=== PATIENT | female | born 1975 | race Caucasian/White ===

== ENCOUNTER 2018-01-03 21:40 | Inpatient (IN) ==
[2018-01-03] MEDS ORDERED: Naloxone 0.4 MG/ML INJ IVP PRN (23:46)
[2018-01-04] MEDS ORDERED: Albuterol 2.5 MG/3 ML NEBULIZER IH PRN (00:27)
[2018-01-04] MEDS ORDERED: hydrOXYzine pamoate 25 MG CAPSULE PO PRN ×2 (00:29→10:30)
[2018-01-04] MEDS ORDERED: Acetaminophen 325 MG TABLET PO PRN (00:29)
--- NOTE | 2018-01-04 00:49 | Internal Med History&Physical ---
<Ava Gomez - Last Filed: 01/04/18 03:10> Date of Encounter: 01/04/18 Time of Encounter: 00:34 Internal Medicine - H&P: HPI Chief complaint: shortness of breath Admitted From: Hospital to Hospital Transfer Plans for Post Hospital Care: Home History of present illness: Ms. Larios is a 42 year old female hx of anxiety and depression presented to [facility] with shortness of breath. Onset 4 days ago with productive cough, malaise, chills & feverish feeling, diaphoresis, and wheeze. She has sternal chest pain tender to touch worse with cough and without radiation. In ED, she was hypoxic 89% on RA and started on oxygen - improved to 95% on 2 l. She was given three albuterol treatments and solumedral - until she became anxious and tachypenic requiring hydroxyzine then Ativan 1 mg then 2mg IV. Received 1 L NS IVF. WBC at 13.4 - normal lactic acid, CRP, LDH and UA. Normal EKG. CMP with anion gap of 7. CT chest showed bilateral ground glass opacities and mild medianstinal adenopathy - radiologist read as suspicous for sarciodosis One month ago she was treated for PNA with Levaquin, steroids and albuterol inhaler - and recovered. She has never been diagnosed with lung disease or had PFTs but she gets recurrent PNA once a year for that past 7 years. She has chronic joint pain in hands bilateral, stiffness worse in morning and occasional numbness- she was seeing a doctor in [place] for this but doesn't know what she was diagnosed with. She has chronic constipation, dry mouth, and decrease in visual acuity in last 6 months. She has fibromalagia worse in her hips for which she was taking gabapentin but stopped few months ago. Has multiple environmental and food allergies. She sees psychiatry for her anxiety and depression and takes Prozac, Wellbutin, Buspar, Trazodone, and Visterial. Family history of grandfather with COPD, and three grandparents with MIs all over age of 50. Surgical history include 3 laproscopic endometriosis lysis and hysterectomy. She quit smoking last week but has 50 pk yr. EtOH 3-4x drinks once every two weeks. He has history of abusing clonidine - quit 6 years ago - denies illicit substance. Past Med Surg Social Fam HX - Past Medical History Medical history: non-contributory Additional medical history: insomnia Psychiatric history: anxiety, depression, other - Past Surgical History Additional surgical history: x-lap - Social History Smoking Status: Current every day smoker Smokeless Tobacco Status: No Alcohol use: none Drug use: none - Family History Mother Living Status: Still Living Hx Family Endocrine Disorder: Yes (dm, thyroid) Father Living Status: Still Living Hx Family Cancer: Yes (melanoma, mouth cancer) Hx Family Endocrine Disorder: Yes (thyroid) Internal Medicine - H&P: Meds Acetaminophen [Tylenol] 325 mg PO Q4-6H PRN 01/04/18 [History] Albuterol Neb [AccuNeb] 0.63 mg IH Q6H PRN 01/04/18 [History] Albuterol Sulfate [Proair Hfa] 1 puff IH Q4-6H PRN 01/04/18 [History] BuPROPion [Wellbutrin] 50 mg PO TID 01/04/18 [History] Buspirone HCl [Buspar] 15 mg PO TID 01/04/18 [History] FLUoxetine HCl [PROzac] 30 mg PO HS 01/04/18 [History] Naproxen Sodium [Aleve] 220 mg PO Q12HR PRN 01/04/18 [History] traZODone [TraZODone] 150 mg PO HS 01/04/18 [History] 3 Allergy/AdvReac Type Severity Reaction Status Date / Time Penicillins Allergy Hives Verified 09/13/16 13:06 metronidazole [From Flagyl] AdvReac Hallucinati Verified 01/04/18 01:45 ng prednisone AdvReac Hallucinati Verified 09/13/16 13:06 ng All Systems PM: A 10-system review of systems was performed and is negative for pertinent findings except as documented above in the HPI. - Constitutional Constitutional: chills, fatigue, malaise, night sweats, no fever(s) - EENT Eyes: blurry vision, change in vision, no loss of vision - Cardiovascular Cardiovascular ROS IM: chest pain, dyspnea, lightheadedness, no edema, no palpitations - Respiratory Respiratory: cough, wheezing, pain on inspiration - Gastrointestinal Gastrointestinal: constipation, nausea, no diarrhea, no vomiting - Genitourinary Genitourinary: no dysuria, no urinary frequency, no urinary incontinence - Musculoskeletal Musculoskeletal ROS IM: arthralgias, back pain, joint swelling, muscle cramps, myalgias, numbness, stiffness, tingling - Integumentary Integumentary IM: no erythema - Psychiatric Psychiatric: anxiety, depression - Endocrine Endocrine IM: no polydipsia, no polyphagia, no polyuria - Allergic/Immunologic Allergic/Immunologic: as per HPI, seasonal rhinorrhea - Constitutional Vitals: Temp Pulse Resp BP Pulse Ox 98.8 F 83 18 102/63 97 01/03/18 23:59 01/03/18 23:59 01/03/18 23:59 01/03/18 23:59 01/03/18 23:59 General appearance: Present: mild distress, A&O X 3, pleasant, answers questions appropriately Exam: conversational dyspena on 3 L NC - Head Head exam: Present: atraumatic, normocephalic - ENT ENT exam: Present: mucous membranes moist, normal oropharynx - Respiratory Respiratory exam: Present: chest wall tenderness, respiratory distress. Absent : wheezes - Cardiovascular Cardiovascular exam: Present: +S1, +S2, tachycardia. Absent: gallop - GI/Abdominal GI/Abdominal exam: Present: normal bowel sounds, soft. Absent: mass, rebound, tenderness - Extremities Exam Extremities exam: Present: full ROM, normal capillary refill, tenderness, radial pulses palpable and symmetrical. Absent: joint swelling, pedal edema Additional comments: tender left hand 1st metacarpal but no joint swelling or erythema, negative phalen test - Back Exam Back exam: Present: full ROM, tenderness. Absent: rash noted - Psychiatric Psychiatric exam: Present: anxious, normal affect. Absent: manic Internal Med - H&P Results - Labs CBC & Chem 7: 01/04/18 00:35 01/04/18 00:35 - Assessment and plan (1) Acute respiratory failure with hypoxia Current Visit: Yes Status: Acute Assessment and plan: suspect sacoidosis based on radiographs, but history also supports undiagnosed COPD -order Ca and Vit D levels - consult pulmonology - continue DueNeb q 4hr scheduled - methylprednisolone 40 mg q 6hr - consider PTs as out patient (2) Anxiety and depression Current Visit: Yes Status: Acute Assessment and plan: - continue home medication - hydroxyzine tid - hesitate to give ativan for anxiety again unless she becomes hypoxic - Time Spent With Patient Total time spent is greater than 50% in coordination of care (as documented) at patient's floor/unit and/or counseling patient: Greater than 35 minutes <Alexandrea Kilpatrick - Last Filed: 01/04/18 07:51> Date of Encounter: 01/04/18 Internal Medicine - H&P: HPI History of present illness: Ms. Larios is a 42 year old female All Systems PM: A 10-system review of systems was performed and is negative for pertinent findings except as documented above in the HPI. - Constitutional Vitals: Temp Pulse Resp BP Pulse Ox 98.3 F 76 16 101/65 98 01/04/18 07:26 01/04/18 07:26 01/04/18 07:26 01/04/18 07:26 01/04/18 07:26 Internal Med - H&P Results - Labs CBC & Chem 7: 01/04/18 00:35 01/04/18 00:35 Labs: Short CBC 01/04/18 Range/Units 00:35 WBC 8.8 (4.3-11.1) K/mcL Hgb 12.6 (11.5-15.4) g/dL Hct 38.9 (35.3-44.9) % Plt Count 381 (140-400) K/mcL BMP 01/04/18 01/04/18 00:35 05:32 Sodium 140 Potassium 4.1 Chloride 106 Carbon Dioxide 27 BUN 8 Creatinine 0.79 Glucose 120 H Calcium 9.0 8.7 Cardiac Enzymes 01/04/18 Range/Units 00:35 Troponin I < 0.03 (< 0.04) ng/mL Liver Function 01/04/18 Range/Units 00:35 Total Bilirubin 0.5 (0.3-1.0) mg/dL AST 14 (13-39) Units/L ALT 13 (7-52) Units/L Alkaline Phosphatase 73 (34-104) Units/L Albumin 3.8 (3.5-5.7) g/dL - Time Spent With Patient Total time spent is greater than 50% in coordination of care (as documented) at patient's floor/unit and/or counseling patient: - Attending Attestation Patient seen and examined. Chart reviewed case discussed with resident. Agree with assessment and plan. Dyspnea possibly secondary to sarcoidosis vs other as of yet undiagnosed rheumatologic disorder. Continue duo nebs, steroids. Pulmonary consult in the morning.
[2018-01-04 01:00] LABS: Hematocrit 38.9 % (35.3-44.9); Hemoglobin 12.6 g/dL (11.5-15.4); Mean Corpuscular HGB Conc 32.4 g/dL (31.6-35.5); Mean Corpuscular Hemoglobin 30.2 pg (28.0-33.3); Mean Corpuscular Volume 93.3 fL (83.0-100.0); Mean Platelet Volume 8.8 fL (9.4-12.4); Platelet Count 381 K/mcL (140-400); Red Blood Count 4.17 M/mcL (3.82-4.97); Red Cell Distribution Width 14.7 % (11.5-14.5)
[2018-01-04] MEDS: 0.9 % Sodium Chloride 1,000 ML IVC SCH ×2 (01:07→10:51)
[2018-01-04] MEDS: *HR* Heparin 5,000 UNIT/ML VIAL SQ SCH ×4 (01:07→23:00)
[2018-01-04 01:11] LABS: INR 1.1; Prothrombin Time 11.9 Seconds (9.4-12.1)
[2018-01-04] MEDS: MethylPREDNISolone 40 MG/ML VIAL IVP SCH ×5 (01:18→23:00)
[2018-01-04 01:21] LABS: Alanine Aminotransferase 13 Units/L (7-52); Albumin 3.8 g/dL (3.5-5.7); Albumin/Globulin Ratio 1.3 (1.1-2.2); Alkaline Phosphatase 73 Units/L (34-104); Aspartate Amino Transferase 14 Units/L (13-39); BUN/Creatinine Ratio 10 (6-26); Bilirubin,Total 0.5 mg/dL (0.3-1.0); Blood Urea Nitrogen 8 mg/dL (6-20); Carbon Dioxide 27 mEq/L (23-29); Chloride 106 mEq/L (98-107); Globulin 2.9 g/dL (2.4-3.5); Glucose 120 mg/dL (70-105); Osmolality,Calculated 290 (280-300); Potassium 4.1 mEq/L (3.5-5.1); Sodium 140 mEq/L (136-145); Total Protein 6.7 g/dL (6.4-8.9); Troponin I < 0.03 ng/mL (< 0.04); eGFR For Non-African Americans > 60 (> 60)
[2018-01-04] MEDS: FLUoxetine HCl 10 MG CAPSULE PO SCH ×2 (02:31→21:51)
[2018-01-04] MEDS: traZODone 50 MG TABLET PO SCH ×2 (02:31→21:51)
[2018-01-04] MEDS: Ipratropium/Albuterol Neb 3 ML IH SCH ×6 (03:38→23:16)
--- NOTE | 2018-01-04 10:04 | Internal Med Progress Note ---
<Sammy Gasca S - Last Filed: 01/04/18 09:59> Hospitalist Progress Note - Encounter Date of Encounter: 01/04/18 Time of Encounter: 10:00 - Subjective Interval History: Pt is seen at the bedside. She has a PMH of hx of anxiety and depression presented to [facility] with shortness of breath. States that she has been having SOB with assoc cough for 4 cintron. Coughing up white sputum and feels feverish subjectively. She denies chest pain, although resident overnight reports that she had chest pain that was tender to the touch and worse with cough. Has a hx of pneumonia tx with levofloacin. She denies COPD /asthma. Reports smoking for the last 26yrs. She has chronic pain diffusely and is seeing a doctor in [place] for this. Pt reports constipation. She has a hx of anxiety/depression, seen by [facility]. Has hx of drug abuse of Klonopin. In the ER, she was 89% O2 and started on O2, improved to 95% on 2L. She was given albuterol tx x3 and then became "very anxious" and required hydroxyzine and ativan. WBC 8.8. Normal lactic acid, CRP, LDH and UA. CT chest showed bilateral ground glass opacities and mild medianstinal adenopathy - radiologist read as suspicous for sarciodosis - Exam Vitals: Temp Pulse Resp BP Pulse Ox 98.3 F 76 16 101/65 97 01/04/18 07:26 01/04/18 07:26 01/04/18 07:33 01/04/18 07:26 01/04/18 07:33 Exam: general - nad, aox3 cardio - rrr, s1s2 cta lungs - diffuse rhonchi abd - NTND, no rebound or guading skin - intact no rash extremities - no edema - Assessment and Plan (1) Acute respiratory failure with hypoxia Current Visit: Yes Status: Acute Assessment and Plan: Pt presented with acute respiratory failure with hypoxia from [facility]. -has been going on for 4 days -assoc cough and subjective fevers/chills -white sputum production presented with O2 sat 89%, improved to 95% on 2L -required albuterol tx x3 -became "anxious" and needed hydroxyzine and ativan CT chest showed bilateral ground glass opacities and mild medianstinal adenopathy - radiologist read as suspicous for sarciodosis -calcium level 8.7 -rheumatoid factor <10 -WBC 8.8 Plan: -vitamin D 1,25 level pending -NPO for pulmonology -pulmonology consulted -GENTRY IgG pending -RENEE level pending -UDS pending -continuous cardiac monitoring -continuous pulse ox -100cc/hr NS IVF -Proventil 2.5mg IH q4hr prn wheeze or SOB (2) Anxiety and depression Current Visit: No Status: Chronic Assessment and Plan: Pt takes Buspr 15mg PO TID, Wellbutrin 50mg PO TID, Prozac 30mg PO hs, Trazodone 150mg PO hs (3) History of drug abuse Current Visit: No Status: Chronic Assessment and Plan: Pt continually asks for Ativan, states hydroxyzine will not work for her. -has hx of abusing Klonopin, reports having multiple "filled bottles of BZ's at home" -will not give pt klonopin at this time - Time Spent with Patient Total time spent is greater than 50% in coordination of care (as documented) at patient's floor/unit and/or counseling patient: less than 15 minutes Plan of Care Discussed with: patient Internal Medicine: Result - Labs CBC & Chem 7: 01/04/18 00:35 01/04/18 00:35 Labs: Short CBC 01/04/18 Range/Units 00:35 WBC 8.8 (4.3-11.1) K/mcL Hgb 12.6 (11.5-15.4) g/dL Hct 38.9 (35.3-44.9) % Plt Count 381 (140-400) K/mcL BMP 01/04/18 01/04/18 00:35 05:32 Sodium 140 Potassium 4.1 Chloride 106 Carbon Dioxide 27 BUN 8 Creatinine 0.79 Glucose 120 H Calcium 9.0 8.7 Cardiac Enzymes 01/04/18 Range/Units 00:35 Troponin I < 0.03 (< 0.04) ng/mL Liver Function 01/04/18 Range/Units 00:35 Total Bilirubin 0.5 (0.3-1.0) mg/dL AST 14 (13-39) Units/L ALT 13 (7-52) Units/L Alkaline Phosphatase 73 (34-104) Units/L Albumin 3.8 (3.5-5.7) g/dL - ABG Interpretation ABG results: PT/INR, D-dimer PT 11.9 Seconds (9.4-12.1) 01/04/18 00:35 Consult Discharge Plan - Plan Referrals: NONE,PCP [Primary Care Provider] - <Rosalie Alonzo - Last Filed: 01/04/18 12:00> Hospitalist Progress Note - Encounter Date of Encounter: 01/04/18 - Exam Vitals: Temp Pulse Resp BP Pulse Ox 98.2 F 77 16 127/74 97 01/04/18 11:51 01/04/18 11:51 01/04/18 11:51 01/04/18 11:51 01/04/18 11:51 - Assessment and Plan (1) Acute respiratory failure with hypoxia Current Visit: Yes Status: Acute (2) Anxiety and depression Current Visit: No Status: Chronic (3) History of drug abuse Current Visit: No Status: Chronic - Time Spent with Patient Total time spent is greater than 50% in coordination of care (as documented) at patient's floor/unit and/or counseling patient: Internal Medicine: Result - Labs CBC & Chem 7: 01/04/18 00:35 01/04/18 00:35 Labs: Short CBC 01/04/18 Range/Units 00:35 WBC 8.8 (4.3-11.1) K/mcL Hgb 12.6 (11.5-15.4) g/dL Hct 38.9 (35.3-44.9) % Plt Count 381 (140-400) K/mcL BMP 01/04/18 01/04/18 00:35 05:32 Sodium 140 Potassium 4.1 Chloride 106 Carbon Dioxide 27 BUN 8 Creatinine 0.79 Glucose 120 H Calcium 9.0 8.7 Cardiac Enzymes 01/04/18 Range/Units 00:35 Troponin I < 0.03 (< 0.04) ng/mL Liver Function 01/04/18 Range/Units 00:35 Total Bilirubin 0.5 (0.3-1.0) mg/dL AST 14 (13-39) Units/L ALT 13 (7-52) Units/L Alkaline Phosphatase 73 (34-104) Units/L Albumin 3.8 (3.5-5.7) g/dL - ABG Interpretation ABG results: PT/INR, D-dimer PT 11.9 Seconds (9.4-12.1) 01/04/18 00:35 - Attending Attestation I have seen and examined this patient independently. I have discussed with resident physician Dr. Gasca regarding the management plan. Agree with the documentation.
[2018-01-04] MEDS ORDERED: Albuterol Neb 0.63 MG/3 ML VIAL IH PRN (10:11)
[2018-01-04] MEDS ORDERED: Sennosides/Docusate Sodium TABLET PO PRN (10:31)
[2018-01-04 11:24] LABS: Amphetamine Screen,Urine Negative ng/mL (Cutoff=1000); Barbiturate Screen,Urine Negative ng/mL (Cutoff=200); Benzodiazepines Screen,Urine Negative ng/mL (Cutoff=200); Cannabinoid Screen,Urine Negative ng/mL (Cutoff = 50); Cocaine Screen,Urine Negative ng/mL (Cutoff= 300); Opiate Screen,Urine Negative ng/mL (Cutoff=300); Phencyclidine Screen,Urine Negative ng/mL (Cutoff=25)
--- NOTE | 2018-01-04 11:58 | Pulmonology Consult Note ---
Date of Encounter: 01/04/18 Time of Encounter: 11:30 Assessment and Plan (1) COPD with exacerbation Current Visit: Yes Status: Acute Patient is on appropriate treatment and I have advised her she should not smoke tobacco again and outpatient workup such as pulmonary function test. Symbicort added to the bronchodilator and empiric antibiotics is reasonable. I will add Levaquin. (2) Mediastinal adenopathy Current Visit: Yes Status: Chronic I have reviewed the report since I am not able to review images, patient has a CD disc with her records that has been sent to our radiology department the download in our system for review and more recommendation. I suspect this is reactive and chronic in nature. This is in the differential diagnosis, however I feel she needs to be treated for her COPD exacerbation at this time and workup can be done as outpatient such as bronchoscopy and biopsy. Sarcoidosis is reported to be less frequent in smokers. (3) Abnormal CT scan, chest Current Visit: Yes Status: Acute I have explained to the primary care team patient can be fed and no plan for procedure at this time. Workup as outpatient. Thank you for consultation. History of Present Illness Consult date: 01/04/18 Requesting physician: Alexandrea Kilpatrick Reason for consult: COPD, abnormal CXR/CT Chief complaint: Dyspnea History of present illness: This is a pleasant 42-year-old female who quit smoking last week and she has about [id number] history of smoking has been having problem according to her ever since she accidentally overdosed on her medication and have aspiration pneumonia. She stated she has allergies and she has 2 cats. She denies any allergies to the cats. Patient states that she has lost more than 90 pounds for the past few years and some of it was intentional. She does have some joint pain and denies any rashes. She denies any hematuria. She has productive cough and wheezing but denies any hemoptysis. She was diagnosed with pneumonia according to her past November and she was seen in [facility] with CAT scan showed some evidence of stable adenopathy according to the report and also groundglass appearance and was transferred to [facility]. At this time she is feeling slightly better. she report allergies to steroid, and she is receiving Solu-Medrol without any significant side effects. Past Med Surg Social Fam HX - Past Medical History Medical history: non-contributory Additional medical history: insomnia Psychiatric history: anxiety, depression, other - Past Surgical History Surgical History: , hysterectomy Additional surgical history: x-lap - Social History Smoking Status: Current every day smoker Smokeless Tobacco Status: No Alcohol use: none Drug use: none - Family History Mother Living Status: Still Living Hx Family Endocrine Disorder: Yes (dm, thyroid) Father Living Status: Still Living Hx Family Cancer: Yes (melanoma, mouth cancer) Hx Family Endocrine Disorder: Yes (thyroid) Medications and Allergies Acetaminophen [Tylenol] 325 mg PO Q4-6H PRN 01/04/18 [History] Albuterol Neb [AccuNeb] 0.63 mg IH Q6H PRN 01/04/18 [History] Albuterol Sulfate [Proair Hfa] 1 puff IH Q4-6H PRN 01/04/18 [History] BuPROPion [Wellbutrin] 50 mg PO TID 01/04/18 [History] Buspirone HCl [Buspar] 15 mg PO TID 01/04/18 [History] FLUoxetine HCl [PROzac] 30 mg PO HS 01/04/18 [History] Naproxen Sodium [Aleve] 220 mg PO Q12HR PRN 01/04/18 [History] traZODone [TraZODone] 150 mg PO HS 01/04/18 [History] 3 Allergy/AdvReac Type Severity Reaction Status Date / Time Penicillins Allergy Hives Verified 09/13/16 13:06 metronidazole [From Flagyl] AdvReac Hallucinati Verified 01/04/18 01:45 ng prednisone AdvReac Hallucinati Verified 09/13/16 13:06 ng All Systems: The remainder of the systems were reviewed and are negative Physical Examination Vital Signs: Vital Signs, Last 4 Hours Resp Pulse Ox 01/04/18 11:40 20 100 General: Patient is in no acute distress. HEENT: Normocephalic atraumatic, pupils are equal round and reactive to light and accommodation, anicteric sclera, nares is patent, mucous membranes moist, no JVD, trachea is midline Cardiovascular: Normal sinus rhythm, S1 and S2 audible, no murmur or rubs Respiratory: Wheezing on auscultation bilaterally. No acute distress. No wheezing. Patient not using accessory muscles. Abdomen: Soft, nontender, nondistended, positive bowel sounds in all 4 quadrants Extremities: Warm, dry, no lower extremity edema. Normal capillary refill. Neuro: Alert and oriented and follows commands. Grossly no neuro deficits. Skin: Warm to touch : No obvious abnormalities. Psych: Normal Results - Laboratory Findings CBC and BMP: 01/04/18 00:35 01/04/18 00:35 PT/INR, D-dimer PT 11.9 Seconds (9.4-12.1) 01/04/18 00:35 Abnormal lab findings: Abnormal lab results RDW 14.7 % (11.5-14.5) H 01/04/18 00:35 MPV 8.8 fL (9.4-12.4) L 01/04/18 00:35 Glucose 120 mg/dL (70-105) H 01/04/18 00:35 - Diagnostic Findings CT scan - chest: report reviewed - Clinical Findings Intake & Output: Intake & Output 01/03/18 01/04/18 01/04/18 23:59 07:59 15:59 Intake Total 0 / 0 Balance 0 / 0 Weight 50.439 kg Consult Discharge Plan - Plan Referrals: NONE,PCP [Primary Care Provider] -
[2018-01-04] MEDS: levoFLOXacin 750 MG TABLET PO SCH (14:20)
[2018-01-04] MEDS: *HR* LORazepam 0.5 MG TABLET PO PRN ×2 (16:47→22:55)
[2018-01-04] MEDS: Budesonide/Formoterol 160/4.5 1 PUFF INH IH SCH (20:05)
[2018-01-05] MEDS: Ipratropium/Albuterol Neb 3 ML IH SCH ×6 (03:46→23:19)
[2018-01-05 04:52] LABS: Basophils % 0.1 %; Hematocrit 38.8 % (35.3-44.9); Hemoglobin 12.2 g/dL (11.5-15.4); Immature Granulocytes % 0.5 % (0-4); Lymphocytes # 1.8 K/mcL (0.6-4.6); Lymphocytes % 11.9 %; Mean Corpuscular HGB Conc 31.4 g/dL (31.6-35.5); Mean Corpuscular Hemoglobin 29.9 pg (28.0-33.3); Mean Corpuscular Volume 95.1 fL (83.0-100.0); Mean Platelet Volume 9.2 fL (9.4-12.4); Monocytes # 0.3 K/mcL (0.0-1.3); Monocytes % 1.9 %; Platelet Count 368 K/mcL (140-400); Red Blood Count 4.08 M/mcL (3.82-4.97); Red Cell Distribution Width 15.5 % (11.5-14.5); Segmented Neutrophils % 85.6 %
[2018-01-05 05:19] LABS: Alanine Aminotransferase 11 Units/L (7-52); Albumin 3.4 g/dL (3.5-5.7); Albumin/Globulin Ratio 1.3 (1.1-2.2); Alkaline Phosphatase 69 Units/L (34-104); Aspartate Amino Transferase 11 Units/L (13-39); BUN/Creatinine Ratio 15 (6-26); Bilirubin,Total 0.2 mg/dL (0.3-1.0); Blood Urea Nitrogen 11 mg/dL (6-20); Carbon Dioxide 28 mEq/L (23-29); Chloride 108 mEq/L (98-107); Globulin 2.7 g/dL (2.4-3.5); Glucose 136 mg/dL (70-105); Osmolality,Calculated 293 (280-300); Potassium 4.6 mEq/L (3.5-5.1); Sodium 141 mEq/L (136-145); Total Protein 6.1 g/dL (6.4-8.9); eGFR For Non-African Americans > 60 (> 60)
[2018-01-05] MEDS: MethylPREDNISolone 40 MG/ML VIAL IVP SCH ×2 (05:38→16:21)
[2018-01-05] MEDS: Budesonide/Formoterol 160/4.5 1 PUFF INH IH SCH ×2 (07:52→19:40)
[2018-01-05] MEDS: *HR* Heparin 5,000 UNIT/ML VIAL SQ SCH ×3 (08:45→23:04)
[2018-01-05] MEDS: levoFLOXacin 750 MG TABLET PO SCH (08:45)
[2018-01-05] MEDS: *HR* LORazepam 0.5 MG TABLET PO PRN ×3 (08:48→23:32)
--- NOTE | 2018-01-05 09:01 | Internal Med Progress Note ---
<CamposSammy S - Last Filed: 01/05/18 08:59> Hospitalist Progress Note - Encounter Date of Encounter: 01/05/18 Time of Encounter: 07:30 - Subjective Interval History: Pt is seen at the bedside. She has a PMH of hx of anxiety and depression presented to [facility] with shortness of breath. Has hx of drug abuse of Klonopin. States that she had been having SOB with assoc cough for 4 dasy. -continues to have white sputum and feels feverish subjectively. -She denies chest pain, although resident overnight reports that she had chest pain that was tender to the touch and worse with cough. -Has a hx of pneumonia tx with levofloacin. -reports smoking for the last 26yrs. -She has chronic pain diffusely and is seeing a doctor in [place] for this. In the ER, she was 89% O2 and started on O2, improved to 95% on 2L. She was given albuterol tx x3 and then became "very anxious" and required hydroxyzine and ativan. WBC 8.8. Normal lactic acid, CRP, LDH and UA. CT chest showed bilateral ground glass opacities and mild medianstinal adenopathy - radiologist read as suspicous for sarciodosis Pt has no complaints at this time. Says ativan is helping with her nerves. No chest pain, n/v/d, abd pain. Pt still requiring 2L O2 NC and is coughing frequently with sputum production. - Exam Vitals: Temp Pulse Resp BP Pulse Ox 97.9 F 80 17 113/63 95 01/05/18 08:09 01/05/18 08:09 01/05/18 08:09 01/05/18 08:09 01/05/18 08:09 Exam: general - nad, aox3 cardio - rrr, s1s2 cta lungs - diffuse rhonchi, decreased breath sounds abd - NTND, no rebound or guading skin - intact no rash extremities - no edema - Assessment and Plan (1) Acute respiratory failure with hypoxia Current Visit: Yes Status: Acute Assessment and Plan: Pt presented with acute respiratory failure with hypoxia from [facility]. -has been going on for 4 days -assoc cough and subjective fevers/chills -white sputum production presented with O2 sat 89%, improved to 95% on 2L -required albuterol tx x3 -became "anxious" and needed hydroxyzine and ativan CT chest showed bilateral ground glass opacities and mild medianstinal adenopathy - radiologist read as suspicous for sarciodosis, pulmonolog feels this is reactive and chronic in nature and that at this time needs tx for COPD exacerbation and can have outpatient pulmonology workup -calcium level 8.7 -rheumatoid factor <10 -WBC 8.8 Today WBC count 15.2 -Dr Hernadez saw yeserday and recommends smoking cessation and outpatient PFT's -added symbicort -started on Levaquin Plan: -vitamin D 1,25 level pending -pulmonology recommendaions appreciated -GENTRY IgG pending -RENEE level pending -continuous cardiac monitoring -continuous pulse ox -100cc/hr NS IVF discontinued -Proventil 2.5mg IH q4hr prn wheeze or SOB -Levaquin 750g PO daily -symbicort added as per pulmonology -will d/c tomorrow as long as breathing status is better (2) Anxiety and depression Current Visit: No Status: Chronic Assessment and Plan: Pt takes Buspr 15mg PO TID, Wellbutrin 50mg PO TID, Prozac 30mg PO hs, Trazodone 150mg PO hs (3) History of drug abuse Current Visit: No Status: Chronic Assessment and Plan: Pt continually asks for Ativan, states hydroxyzine will not work for her. -has hx of abusing Klonopin, reports having multiple "filled bottles of BZ's at home" Was given Ativan 0.5mg PO q6hr prn anxiety and this "helped her nerves" - Time Spent with Patient Total time spent is greater than 50% in coordination of care (as documented) at patient's floor/unit and/or counseling patient: less than 15 minutes Plan of Care Discussed with: patient Internal Medicine: Result - Labs CBC & Chem 7: 01/05/18 04:21 01/05/18 04:21 Labs: Short CBC 01/05/18 Range/Units 04:21 WBC 15.2 H D (4.3-11.1) K/mcL Hgb 12.2 (11.5-15.4) g/dL Hct 38.8 (35.3-44.9) % Plt Count 368 (140-400) K/mcL Neutrophils # 13.0 H (1.6-8.9) K/mcL BMP 01/05/18 04:21 Sodium 141 Potassium 4.6 Chloride 108 H Carbon Dioxide 28 BUN 11 Creatinine 0.73 Glucose 136 H Calcium 9.0 Liver Function 01/05/18 Range/Units 04:21 Total Bilirubin 0.2 L (0.3-1.0) mg/dL AST 11 L (13-39) Units/L ALT 11 (7-52) Units/L Alkaline Phosphatase 69 (34-104) Units/L Albumin 3.4 L (3.5-5.7) g/dL - ABG Interpretation ABG results: PT/INR, D-dimer PT 11.9 Seconds (9.4-12.1) 01/04/18 00:35 Consult Discharge Plan - Plan Referrals: NONE,PCP [Primary Care Provider] - <Rosalie Alonzo - Last Filed: 01/05/18 12:31> Hospitalist Progress Note - Encounter Date of Encounter: 01/05/18 - Exam Vitals: Temp Pulse Resp BP Pulse Ox 98.4 F 78 16 104/58 93 01/05/18 11:07 01/05/18 11:07 01/05/18 11:25 01/05/18 11:07 01/05/18 11:25 - Assessment and Plan (1) Acute respiratory failure with hypoxia Current Visit: Yes Status: Acute (2) Anxiety and depression Current Visit: No Status: Chronic (3) History of drug abuse Current Visit: No Status: Chronic - Time Spent with Patient Total time spent is greater than 50% in coordination of care (as documented) at patient's floor/unit and/or counseling patient: Internal Medicine: Result - Labs CBC & Chem 7: 01/05/18 04:21 01/05/18 04:21 Labs: Short CBC 01/05/18 Range/Units 04:21 WBC 15.2 H D (4.3-11.1) K/mcL Hgb 12.2 (11.5-15.4) g/dL Hct 38.8 (35.3-44.9) % Plt Count 368 (140-400) K/mcL Neutrophils # 13.0 H (1.6-8.9) K/mcL BMP 01/05/18 04:21 Sodium 141 Potassium 4.6 Chloride 108 H Carbon Dioxide 28 BUN 11 Creatinine 0.73 Glucose 136 H Calcium 9.0 Liver Function 01/05/18 Range/Units 04:21 Total Bilirubin 0.2 L (0.3-1.0) mg/dL AST 11 L (13-39) Units/L ALT 11 (7-52) Units/L Alkaline Phosphatase 69 (34-104) Units/L Albumin 3.4 L (3.5-5.7) g/dL - ABG Interpretation ABG results: PT/INR, D-dimer PT 11.9 Seconds (9.4-12.1) 01/04/18 00:35 - Attending Attestation I have seen and examined this patient independently. I have discussed with resident physician Dr. Gasca regarding the management plan. Agree with the documentation.
--- NOTE | 2018-01-05 10:27 | Pulmonology Progress Note ---
Date of Encounter: 01/05/18 Time of Encounter: 09:55 Assessment and Plan (1) COPD with exacerbation Current Visit: Yes Status: Resolved Patient clinically feels better on current treatment and when she is discharged home then she will need to be tapered steroid and antibiotic. Continue bronchodilators. (2) Mediastinal adenopathy Current Visit: Yes Status: Chronic This need to be followed up as outpatient since she has history of smoking and it is important to make sure remained stable otherwise will need biopsy and we will have the office to arrange follow-up CT in 1-2 months and then she can be seen in the office. Please call for any questions. (3) Abnormal CT scan, chest Current Visit: Yes Status: Acute Subjective Principal diagnosis: Shortness of breath Interval history: Patient stated that she is feeling better and her breathing gets better and she denies any hemoptysis, however she continued to have some productive sputum. Objective PUL Vital signs: Last Vital Signs Temp 97.9 F 01/05/18 08:09 Pulse 80 01/05/18 08:09 Resp 17 01/05/18 08:09 BP 113/63 01/05/18 08:09 Pulse Ox 95 01/05/18 08:09 General: Patient is in no acute distress. HEENT: Normocephalic atraumatic, pupils are equal round and reactive to light and accommodation, anicteric sclera, nares is patent, mucous membranes moist, no JVD, trachea is midline Cardiovascular: Normal sinus rhythm, S1 and S2 audible, no murmur or rubs Respiratory: Scattered rhonchi on auscultation bilaterally. No acute distress. No wheezing. Patient not using accessory muscles. Abdomen: Soft, nontender, nondistended, positive bowel sounds in all 4 quadrants Extremities: Warm, dry, no ower extremity edema. Normal capillary refill. Neuro: Alert and oriented and follows commands. Grossly no neuro deficits. Skin: Warm to touch : No obvious abnormalities. Psych: Normal Results - Laboratory Findings CBC and BMP: 01/05/18 04:21 01/05/18 04:21 PT/INR, D-dimer PT 11.9 Seconds (9.4-12.1) 01/04/18 00:35 Abnormal lab findings: Abnormal lab results WBC 15.2 K/mcL (4.3-11.1) H D 01/05/18 04:21 MCHC 31.4 g/dL (31.6-35.5) L 01/05/18 04:21 RDW 15.5 % (11.5-14.5) H 01/05/18 04:21 MPV 9.2 fL (9.4-12.4) L 01/05/18 04:21 Neutrophils # 13.0 K/mcL (1.6-8.9) H 01/05/18 04:21 Chloride 108 mEq/L (98-107) H 01/05/18 04:21 Glucose 136 mg/dL (70-105) H 01/05/18 04:21 Total Bilirubin 0.2 mg/dL (0.3-1.0) L 01/05/18 04:21 AST 11 Units/L (13-39) L 01/05/18 04:21 Serum Total Protein 6.1 g/dL (6.4-8.9) L 01/05/18 04:21 Albumin 3.4 g/dL (3.5-5.7) L 01/05/18 04:21 - Clinical Findings Intake & Output: Intake & Output 01/04/18 01/05/18 01/05/18 23:59 07:59 15:59 Intake Total 1000 / 1000 Output Total 500 / 500 Balance 500 / 500 Weight 49.986 kg Consult Discharge Plan - Plan Referrals: NONE,PCP [Primary Care Provider] -
[2018-01-05] MEDS ORDERED: Menthol 9.1 MG LOZENGE PO PRN (14:33)
[2018-01-05] MEDS ORDERED: Vicks Vaporub Oint 50 GM PACKAGE TP PRN (16:13)
[2018-01-05] MEDS ORDERED: Acetaminophen 325 MG TABLET PO PRN (20:39)
[2018-01-05] MEDS ORDERED: *HR* LORazepam 2 MG/ML VIAL IVP ONE (20:41)
[2018-01-05] MEDS: FLUoxetine HCl 10 MG CAPSULE PO SCH (23:04)
[2018-01-05] MEDS: traZODone 50 MG TABLET PO SCH (23:04)
[2018-01-06] MEDS: Ipratropium/Albuterol Neb 3 ML IH SCH ×3 (03:26→11:44)
[2018-01-06] MEDS: MethylPREDNISolone 40 MG/ML VIAL IVP SCH (05:40)
[2018-01-06] MEDS: *HR* Heparin 5,000 UNIT/ML VIAL SQ SCH (08:59)
[2018-01-06] MEDS: levoFLOXacin 750 MG TABLET PO SCH (09:00)
[2018-01-06] MEDS: *HR* LORazepam 0.5 MG TABLET PO PRN ×2 (09:02→14:55)
[2018-01-06 11:16] VITALS: BP 136/81
--- NOTE | 2018-01-06 11:37 | Event Note ---
Date of Encounter: 01/06/18 Time of Encounter: 11:35 Agree with current management for COPD exacerbation possibility of pneumonia continue antibiotics for a total of 7-10 days based upon clinical course she will need a steroid taper over the next at least 2 weeks with pulmonary follow- up in the next 4-6 weeks for further evaluation possibility of a diagnostic bronchoscopy. I have also added on a respiratory infection panel as the multifocal infiltrates could certainly be related to viral/atypical process
[2018-01-06] MEDS: Budesonide/Formoterol 160/4.5 1 PUFF INH IH SCH (11:44)
--- NOTE | 2018-01-06 12:09 | Discharge Summary ---
<Ignacia Louise - Last Filed: 01/06/18 12:06> - NOTES TO OUTPATIENT PROVIDER Notes to Outpatient Provider: - CT chest f/u in 1-2 months per pulmonology. - f /u with pulmonology for PFTs. - re-evaluatin of O2 need Orders not resulted at time of discharge: Pending orders 01/04/18 05:32 GENTRY IgG MARIA LUISA rflx IFA Routine Angiotensin Converting Enzyme Routine Vitamin D 1,25 Dihydroxy AM 0400 01/05/18 14:32 EKG [ECG 12 lead ECG] [ECG] Routine 01/06/18 11:34 Respiratory Infection Panel [MOLMIC] Stat Date of Encounter: 01/06/18 Time of Encounter: 12:09 - Discharge Diagnosis (1) Acute respiratory failure with hypoxia Priority: Primary Status: Acute (2) Anxiety and depression Priority: Secondary Status: Chronic (3) History of drug abuse Priority: Secondary Status: Chronic (4) COPD with exacerbation Priority: Secondary Status: Resolved (5) Mediastinal adenopathy Priority: Secondary Status: Chronic (6) Abnormal CT scan, chest Priority: Secondary Status: Acute Hospital course: HPI: Ms. Larios is a 42 year old female history of aspiration pneumonia, fibromyalgia, anxiety and depression who presented to [facility] with shortness of breath. Onset 4 days ago with productive cough, malaise, chills & feverish feeling, diaphoresis, and wheeze. She has sternal chest pain tender to touch worse with cough and without radiation. In ED, she was hypoxic 89% on RA and started on oxygen - improved to 95% on 2 l. She was given three albuterol treatments and solumedral - until she became anxious and tachypenic requiring hydroxyzine then Ativan 1 mg then 2mg IV. Received 1 L NS IVF. WBC at 13.4 - normal lactic acid, CRP, LDH and UA. Normal EKG. CMP with anion gap of 7. CT chest showed bilateral ground glass opacities and mild medianstinal adenopathy - radiologist read as suspicous for sarciodosis One month ago she was treated for PNA with Levaquin, steroids and albuterol inhaler - and recovered. She has never been diagnosed with lung disease or had PFTs but she gets recurrent PNA once a year for that past 7 years. She has chronic joint pain in hands bilateral, stiffness worse in morning and occasional numbness- she was seeing a doctor in [place] for this but doesn't know what she was diagnosed with. HOSPITAL COURSE: Patient was placed on IV steroids and levaquin with supportive oxygen. During her hospital stay CT of chest was reviewed by pulmonology who believed mediastinal andenopathy to be mostly reactive and chronic in nature but workup can be done as outpatient such as bronchoscopy and biopsy. Sarcoidosis is reported to be less frequent in smokers, but recommend CT of chest in 1-2 months. Patient was unable to be weaned of oxygen in the hospital and qualified for home oxygen 2L nasal cannula. Patient was discharged home with 6 days of Leavquin, and a 12 day steroid taper. Patient's vitals were stable at discharge. Patient was instructed to return to the ED if worsening SOB or worsening clinical course. Patient was discharged home with a f/u for PCP in 3- 5 days, pulmonology f/u in 4-6 weeks and was instructed to obtain a f/u CT in 1- 2 months that would be set up by pulmonology. Discharge discussed with: patient - Time Spent with Patient Total time spent providing and/or coordinating discharge services: - Discharge Medications Prescriptions: Budesonide/Formoterol 160/4.5 [Symbicort 160/4.5] 2 puff IH BIDR 30 Days #1 inhaler levoFLOXacin [Levaquin] 750 mg PO DAILY #7 tablet MethylPREDNISolone [Medrol] 16 mg PO DAILY #14 tablet Home Medications: Acetaminophen [Tylenol] 325 mg PO Q4-6H PRN 01/04/18 [History] Albuterol Neb [Proventil Neb] 2.5 mg IH Q6H PRN 01/04/18 [History] Albuterol Sulfate [Proair Hfa] 1 puff IH Q4-6H PRN 01/04/18 [History] BuPROPion [Wellbutrin] 50 mg PO TID 01/04/18 [History] Buspirone HCl [Buspar] 15 mg PO TID 01/04/18 [History] FLUoxetine HCl [Prozac] 30 mg PO HS 01/04/18 [History] Naproxen Sodium [Aleve] 220 mg PO Q12HR PRN 01/04/18 [History] Trazodone HCl 150 mg PO HS 01/04/18 [History] hydrOXYzine HCl [Hydroxyzine HCl] 50 mg PO BID 01/04/18 [History] Budesonide/Formoterol 160/4.5 [Symbicort 160/4.5] 2 puff IH BIDR 30 Days #1 inhaler 01/06/18 [Rx] MethylPREDNISolone [Medrol] 16 mg PO DAILY #14 tablet 01/06/18 [Rx] levoFLOXacin [Levaquin] 750 mg PO DAILY #7 tablet 01/06/18 [Rx] Allergies/Adverse Reactions: 3 Allergy/AdvReac Type Severity Reaction Status Date / Time Penicillins Allergy Hives Verified 09/13/16 13:06 metronidazole [From Flagyl] AdvReac Hallucinati Verified 01/04/18 01:45 ng prednisone AdvReac Hallucinati Verified 09/13/16 13:06 ng Date of admission: 01/03/18 23:46 Primary care physician: PCP NONE Consults: 01/04/18 02:16 Consult to Pulmonology [CONS] Routine Consulting Provider: [facility] Reason for Consult: possible sarcoidosis per outside radiology report Call Completed: No 01/06/18 11:35 Consult to [facility] [CONS] Routine Reason for SW Consult: patient qualifies for oxygen and will need set up Discharging clinician: Rosalie Alonzo Anticipated date of discharge: 01/06/18 - Constitutional Vitals: Temp Pulse Resp BP Pulse Ox 98.4 F 69 16 136/81 100 01/06/18 11:15 01/06/18 11:15 01/06/18 11:15 01/06/18 11:15 01/06/18 11:34 General appearance: Present: mild distress, A&O X 3, pleasant, answers questions appropriately Exam: Constitutional: Alert, in no acute distress, well nourished, well developed. Head: Normocephalic, atraumatic, normal contour and symmetric, no masses, lesions or scars Heart: Normal, regular rate and rhythm, no murmurs Lungs: On 2L NC, no acute respiratory distress, Clear to auscultation, no wheezes, rales, or rhonchi Abdomen: Soft, nondistended, nontender, and no masses palpable, bowel sounds present and normal, no guarding or rigidity. Extremities: No clubbing, cyanosis, or edema, capillary refill <2sec. Skin: Skin warm and dry, no lesions, no rashes, no jaundice Neurologic: no focal deficits, strength within normal limits in all extremities Psych: Cooperative with exam, good eye contact, cognitive function intact, judgment good insight good, speech clear, thought process logical, and goal directed - Patient Status Disposition: Home, Self-Care Condition: Fair Functional capacity at discharge: independent ambulation Overall status at discharge: patient is progressing back to baseline - Discharge Instructions Instructions: Methylprednisolone (By mouth), Levofloxacin (By mouth), Budesonide/Formoterol (By breathing), COPD Exacerbation, Guest House Manager (GEN) Follow Up With: Find a, Provider [Other] (Please call [phone] to find a provider closest to your home tomorrow. Offices are closed in observance of . ) [facility] [Outside] [facility] [Provider Group] Additional Instructions: - Will need to make a follow-up appointment with a primary care physician within the next 3-5 days. - Will need to go make a follow-up appointment with a mannequin sander and finisher within the next 4-6 weeks. - Will need a follow-up CT of the chest for monitoring lymph nodes in 1-2 months - Will need to continue to take your antibiotics for 6 days - Please continue to use oxygen continuously until primary care physician or mannequin sander and finisher says to stop - Please take Medrol (steroids) for 12 more days - Please return to the ED if worsening shortness of breath or if you feel like you are not getting better. - Diet and Activity Activity: wear oxygen at all times Diet: advance to your usual diet <Rosalie Alonzo - Last Filed: 01/06/18 14:22> Orders not resulted at time of discharge: Pending orders 01/04/18 05:32 GENTRY IgG MARIA LUISA rflx IFA Routine Angiotensin Converting Enzyme Routine Vitamin D 1,25 Dihydroxy AM 0400 01/05/18 14:32 EKG [ECG 12 lead ECG] [ECG] Routine 01/06/18 11:30 Respiratory Infection Panel [MOLMIC] Stat Date of Encounter: 01/06/18 - Discharge Diagnosis (1) Acute respiratory failure with hypoxia Status: Acute (2) Anxiety and depression Status: Chronic (3) History of drug abuse Status: Chronic Hospital course: Ms. Larios is a 42 year old female - Time Spent with Patient Total time spent providing and/or coordinating discharge services: Date of admission: 01/03/18 23:46 Primary care physician: PCP NONE Consults: 01/04/18 02:16 Consult to Pulmonology [CONS] Routine Consulting Provider: [facility] Reason for Consult: possible sarcoidosis per outside radiology report Call Completed: No 01/06/18 11:35 Consult to [facility] [CONS] Routine Reason for SW Consult: patient qualifies for oxygen and will need set up - Constitutional Vitals: Temp Pulse Resp BP Pulse Ox 98.4 F 69 16 136/81 100 01/06/18 11:15 01/06/18 11:15 01/06/18 11:15 01/06/18 11:15 01/06/18 11:34 - Attending Attestation I have seen and examined this patient independently. I have discussed with resident physician Dr. Louise regarding the discharge and follow-up plan. Agree with the documentation. Respiratory virus penal negative, cont f/u with pulmonology as outpatient.
[2018-01-06 14:21] LABS: Adenovirus Not Detected (Not Detect); Bordetella Pertussis Not Detected (Not Detect); Chlamydophila pneumoniae Not Detected (Not Detect); Coronavirus 229E Not Detected (Not Detect); Coronavirus HKU1 Not Detected (Not Detect); Coronavirus NL63 Not Detected (Not Detect); Coronavirus OC43 Not Detected (Not Detect); Human Metapneumovirus Not Detected (Not Detect); Human Rhinovirus/Enterovirus Not Detected (Not Detect); Influenza A Subtype 2009 H1 Not Detected (Not Detect); Influenza A Untypeable Not Detected (Not Detect); Influenza B Not Detected (Not Detect); Mycoplasma pneumoniae Not Detected (Not Detect); Parainfluenza Virus 1 Not Detected (Not Detect); Parainfluenza Virus 2 Not Detected (Not Detect); Parainfluenza Virus 3 Not Detected (Not Detect); Parainfluenza Virus 4 Not Detected (Not Detect); Respiratory Syncytial Virus Not Detected (Not Detect)
[2018-01-07 15:57] LABS: ANA IgG by ELISA NONE DETECTED (None Detected)
--- NOTE | 2018-01-08 22:25 | Electrocardiograph Report ---
[place] [id number] Test Date: 2018-01-05 Pat Name: Sherrell Larios Department: 113 Room: [facility] Gender: F Building Custodial Supervisor: : 1975 Requested By: Sammy Gasca Order Number: [id number] Reading MD: Luis Eduardo Gandhi Measurements Intervals [place] Rate: 81 P: 75 [place]: 126 QRS: 77 QRSD: 90 T: 68 QT: 381 QTc: 418 Interpretive Statements SINUS RHYTHM Electronically Signed On 01-08-2018 22:23:27 EDT by Luis Eduardo Gandhi
== END 2018-01-06 14:56 | disposition home or self-care (01) | DRG 190 ==
LOC: 3BNU
PROVIDERS: ADMIT Internal Medicine; ATTEND Internal Medicine

== ENCOUNTER 2019-05-15 11:53 | Observation (INO) ==
[2019-05-15] MEDS ORDERED: 0.9 % Sodium Chloride 1,000 ML IVC ONE (12:08)
[2019-05-15 12:27] LABS: Basophils # 0.1 K/mcL (0.0-0.2); Basophils % 0.7 %; Eosinophils % 0.4 %; Hematocrit 41.1 % (35.3-44.9); Hemoglobin 14.6 g/dL (11.5-15.4); Immature Granulocytes % 0.4 % (0-4); Lymphocytes # 1.7 K/mcL (0.6-4.6); Lymphocytes % 22.7 %; Mean Corpuscular HGB Conc 35.5 g/dL (31.6-35.5); Mean Corpuscular Hemoglobin 32.5 pg (28.0-33.3); Mean Corpuscular Volume 91.5 fL (83.0-100.0); Mean Platelet Volume 8.1 fL (9.4-12.4); Monocytes # 0.5 K/mcL (0.0-1.3); Platelet Count 448 K/mcL (140-400); Red Blood Count 4.49 M/mcL (3.82-4.97); Red Cell Distribution Width 12.1 % (11.5-14.5); Segmented Neutrophils % 68.8 %; White Blood Count 7.3 K/mcL (4.3-11.1)
[2019-05-15 12:46] LABS: Albumin 4.6 g/dL (3.5-5.7); Albumin/Globulin Ratio 1.4 (1.1-2.2); Bilirubin,Total 0.8 mg/dL (0.3-1.0); Calcium 9.8 mg/dL (8.6-10.3); Globulin 3.2 g/dL (2.4-3.5); Potassium 3.3 mEq/L (3.5-5.1); Total Protein 7.8 g/dL (6.4-8.9)
[2019-05-15 13:12] LABS: Bilirubin,Urine Negative (Negative); Blood,Urine Negative (Negative); Clarity,Urine Clear (Clear); Color,Urine Yellow (Yellow); Glucose,Urine (UA) Normal (Normal); Ketones,Urine Negative (Negative); Leukocyte Esterase,Urine Negative (Negative); Nitrite,Urine Negative (Negative); Protein,Urine Negative (Neg-Trace); Specific Gravity,Urine 1.009 (1.010-1.025); Urobilinogen,Urine Normal (Normal)
[2019-05-15 13:49] LABS: Magnesium 2.1 mg/dL (1.6-2.6); Phosphorous 3.1 mg/dL (2.7-4.5)
[2019-05-15] MEDS ORDERED: Potassium Chloride Elixir 20 MEQ/15 ML UDC PO ONE (15:08)
[2019-05-15] MEDS ORDERED: Naloxone 0.4 MG/ML INJ IVP PRN (15:48)
[2019-05-15] MEDS ORDERED: Acetaminophen 325 MG TABLET PO PRN (15:48)
[2019-05-15] MEDS ORDERED: Albuterol 2.5 MG/3 ML NEBULIZER IH PRN (16:00)
[2019-05-15] MEDS ORDERED: Ondansetron 4 MG/2 ML VIAL IVP PRN (18:44)
[2019-05-15] MEDS ORDERED: 0.9 % Sodium Chloride 1,000 ML IVC SCH (18:45)
[2019-05-15 21:05] LABS: Potassium,Urine 21.2 mEq/L; Sodium, Urine 11.5 mEq/L
[2019-05-15] MEDS: FLUoxetine HCl 10 MG CAPSULE PO SCH (22:04)
[2019-05-15] MEDS: traZODone 50 MG TABLET PO SCH (22:04)
[2019-05-15] MEDS: Budesonide/Formoterol 160/4.5 1 PUFF INH IH SCH (22:33)
[2019-05-16 01:21] LABS: Basophils # 0.1 K/mcL (0.0-0.2); Basophils % 0.7 %; Eosinophils # 0.1 K/mcL (0.0-0.6); Eosinophils % 1.2 %; Hematocrit 36.5 % (35.3-44.9); Immature Granulocytes % 0.4 % (0-4); Lymphocytes # 2.1 K/mcL (0.6-4.6); Mean Corpuscular HGB Conc 35.6 g/dL (31.6-35.5); Mean Corpuscular Volume 92.6 fL (83.0-100.0); Mean Platelet Volume 8.1 fL (9.4-12.4); Monocytes # 0.9 K/mcL (0.0-1.3); Monocytes % 10.3 %; Neutrophils # 5.2 K/mcL (1.6-8.9); Platelet Count 408 K/mcL (140-400); Red Blood Count 3.94 M/mcL (3.82-4.97); Red Cell Distribution Width 12.2 % (11.5-14.5); Segmented Neutrophils % 62.4 %; White Blood Count 8.3 K/mcL (4.3-11.1)
[2019-05-16 01:39] LABS: BUN/Creatinine Ratio 8 (6-26); Blood Urea Nitrogen 8 mg/dL (6-20); Calcium 8.7 mg/dL (8.6-10.3); Carbon Dioxide 25 mEq/L (23-29); Chloride 95 mEq/L (98-107); Glucose 88 mg/dL (70-105); Magnesium 1.9 mg/dL (1.6-2.6); Osmolality,Calculated 264 (280-300); Phosphorous 3.1 mg/dL (2.7-4.5); Sodium 128 mEq/L (136-145); eGFR For African Americans > 60 (> 60); eGFR For Non-African Americans > 60 (> 60)
[2019-05-16 04:13] LABS: Estimated Average Glucose 94 mg/dl
[2019-05-16] MEDS: Budesonide/Formoterol 160/4.5 1 PUFF INH IH SCH ×2 (07:33→21:21)
[2019-05-16] MEDS: Magnesium Oxide 400 MG TABLET PO SCH (09:21)
[2019-05-16] MEDS ORDERED: D5% in Water 250 ML IVC SCH (11:00)
[2019-05-16] MEDS: Benzonatate 100 MG CAPSULE PO PRN (17:35)
[2019-05-16] MEDS: traZODone 50 MG TABLET PO SCH (21:00)
[2019-05-16] MEDS: FLUoxetine HCl 10 MG CAPSULE PO SCH (21:01)
[2019-05-17] MEDS: Benzonatate 100 MG CAPSULE PO PRN ×2 (01:40→10:04)
[2019-05-17 06:59] LABS: BUN/Creatinine Ratio 8 (6-26); Blood Urea Nitrogen 7 mg/dL (6-20); Calcium 8.9 mg/dL (8.6-10.3); Carbon Dioxide 26 mEq/L (23-29); Chloride 100 mEq/L (98-107); Glucose 113 mg/dL (70-105); Magnesium 1.8 mg/dL (1.6-2.6); Osmolality,Calculated 273 (280-300); Potassium 4.5 mEq/L (3.5-5.1); Sodium 132 mEq/L (136-145); eGFR For African Americans > 60 (> 60); eGFR For Non-African Americans > 60 (> 60)
[2019-05-17] MEDS: Budesonide/Formoterol 160/4.5 1 PUFF INH IH SCH ×2 (08:04→22:33)
[2019-05-17] MEDS: Magnesium Oxide 400 MG TABLET PO SCH (10:05)
[2019-05-17] MEDS ORDERED: 0.9 % Sodium Chloride 250 ML IVC SCH (13:47)
[2019-05-17] MEDS: FLUoxetine HCl 10 MG CAPSULE PO SCH (20:56)
[2019-05-17] MEDS: traZODone 50 MG TABLET PO SCH (20:56)
[2019-05-18 05:56] LABS: BUN/Creatinine Ratio 9 (6-26); Blood Urea Nitrogen 8 mg/dL (6-20); Calcium 9.1 mg/dL (8.6-10.3); Carbon Dioxide 26 mEq/L (23-29); Chloride 103 mEq/L (98-107); Glucose 98 mg/dL (70-105); Osmolality,Calculated 280 (280-300); Potassium 3.9 mEq/L (3.5-5.1); Sodium 136 mEq/L (136-145); eGFR For African Americans > 60 (> 60); eGFR For Non-African Americans > 60 (> 60)
[2019-05-18] MEDS: Budesonide/Formoterol 160/4.5 1 PUFF INH IH SCH (07:33)
[2019-05-18] MEDS: Magnesium Oxide 400 MG TABLET PO SCH (08:28)
[2019-05-18] MEDS: Benzonatate 100 MG CAPSULE PO PRN (08:34)
[2019-05-18 11:33] VITALS: BP 123/78
== END 2019-05-18 18:50 | disposition home or self-care (01) ==
LOC: EMEROOARM 11:53 → 2NENU 11:53 → SUATTDRO 18:47 → 2NENU 20:51
PROVIDERS: ADMIT Internal Medicine; ATTEND Internal Medicine

== ENCOUNTER 2019-10-22 06:04 | Inpatient (IN) ==
[2019-10-22] MEDS ORDERED: Ringers Solution, Lactated 1,000 ML IVC SCH (06:30)
[2019-10-22] MEDS ORDERED: Clindamycin 900 MG/50 ML 900 MG/50 ML IV.SOLN IVPB ONE (06:58)
[2019-10-22] MEDS ORDERED: Acetaminophen IV 1,000 MG/100 ML INFUS..BTL IVPB ONE (07:00)
[2019-10-22] MEDS ORDERED: Famotidine 20 MG/2 ML VIAL IVP ONE (07:00)
[2019-10-22] MEDS ORDERED: Gabapentin 300 MG CAPSULE PO ONE (07:00)
[2019-10-22] MEDS ORDERED: Lidocaine -MPF 2% 2 ML VIAL ONE (07:09)
[2019-10-22] MEDS ORDERED: *HR* Succinylcholine 200 MG/10 ML VIAL IVP ONE (07:09)
[2019-10-22] MEDS ORDERED: *HR* FentaNYL (PF) 100 MCG/2 ML VIAL ONE (07:09)
[2019-10-22] MEDS ORDERED: *HR* Rocuronium Bromide 50 MG/5 ML VIAL ONE (07:09)
[2019-10-22] MEDS ORDERED: *HR* Midazolam HCl 2 MG/2 ML VIAL ONE (07:10)
[2019-10-22] MEDS ORDERED: *HR* Propofol 200 MG/20 ML VIAL IVP ONE (07:10)
[2019-10-22] MEDS ORDERED: Ondansetron 4 MG/2 ML VIAL ONE (07:12)
[2019-10-22] MEDS ORDERED: Dexamethasone 4 MG/ML VIAL ONE (07:12)
[2019-10-22] MEDS ORDERED: Lidocaine -MPF 4% 5 ML AMPUL ONE (07:14)
[2019-10-22] MEDS ORDERED: *HR* PHENYLEPHRINE 1,000 MCG/10 ML SYRINGE IVP ONE ×2 (08:11→08:48)
[2019-10-22] MEDS ORDERED: Ketorolac 15 MG/ML VIAL IVP ONE (08:26)
[2019-10-22] MEDS ORDERED: *HR* Promethazine 25 MG/ML VIAL IVP PRN (08:26)
[2019-10-22] MEDS ORDERED: *HR* HYDROmorphone PF 0.5 MG/0.5 ML SYRINGE IVP PRN (08:26)
[2019-10-22] MEDS ORDERED: Ondansetron 4 MG/2 ML VIAL IVP ONE (08:26)
[2019-10-22] MEDS ORDERED: *HR* OxyCODONE Immed Rel 5 MG TABLET PO PRN (08:26)
[2019-10-22] MEDS ORDERED: Naloxone 0.4 MG/ML INJ IVP PRN (09:35)
[2019-10-22] MEDS ORDERED: Ondansetron 4 MG/2 ML VIAL IVP PRN (09:35)
[2019-10-22] MEDS: 0.9 % Sodium Chloride 1,000 ML IVC SCH ×2 (10:13→23:31)
[2019-10-22] MEDS: Ketorolac 15 MG/ML VIAL IVP SCH ×3 (11:28→23:31)
[2019-10-22] MEDS: Budesonide/Formoterol 160/4.5 1 PUFF INH IH SCH ×2 (11:46→19:54)
[2019-10-22] MEDS: Ipratropium/Albuterol Neb 3 ML IH SCH ×4 (11:46→23:50)
[2019-10-22] MEDS: *HR* Heparin 5,000 UNIT/ML VIAL SQ SCH ×2 (14:58→21:20)
[2019-10-22] MEDS: Gabapentin 300 MG CAPSULE PO SCH ×2 (14:58→21:20)
[2019-10-22] MEDS: Famotidine 20 MG TABLET PO SCH (16:24)
[2019-10-22] MEDS ORDERED: FLUoxetine 20 MG CAPSULE PO SCH (21:00)
[2019-10-22] MEDS: Sennosides/Docusate Sodium TABLET PO SCH (21:19)
[2019-10-23 02:02] LABS: Hematocrit 35.3 % (35.3-44.9); Hemoglobin 11.3 g/dL (11.5-15.4); Mean Corpuscular Hemoglobin 32.1 pg (28.0-33.3); Mean Corpuscular Volume 100.3 fL (83.0-100.0); Mean Platelet Volume 8.5 fL (9.4-12.4); Platelet Count 304 K/mcL (140-400); Red Blood Count 3.52 M/mcL (3.82-4.97); White Blood Count 8.3 K/mcL (4.3-11.1)
[2019-10-23 02:24] LABS: % Iron Saturation 21 % (15-50); BUN/Creatinine Ratio 14 (6-26); Blood Urea Nitrogen 15 mg/dL (6-20); Calcium 8.2 mg/dL (8.6-10.3); Carbon Dioxide 20 mEq/L (23-29); Chloride 106 mEq/L (98-107); Glucose 94 mg/dL (70-105); Iron 56 mcg/dL (50-170); Magnesium 1.9 mg/dL (1.6-2.6); Osmolality,Calculated 277 (280-300); Potassium 3.8 mEq/L (3.5-5.1); Sodium 133 mEq/L (136-145); Transferrin 190 mg/dL (203-362); eGFR For African Americans > 60 (> 60); eGFR For Non-African Americans 54 (> 60)
[2019-10-23] MEDS: Ipratropium/Albuterol Neb 3 ML IH SCH ×3 (03:46→11:24)
[2019-10-23] MEDS: Ketorolac 15 MG/ML VIAL IVP SCH ×2 (06:37→11:32)
[2019-10-23] MEDS: *HR* Heparin 5,000 UNIT/ML VIAL SQ SCH (06:37)
[2019-10-23] MEDS: Famotidine 20 MG TABLET PO SCH (07:23)
[2019-10-23] MEDS: *HR* HYDROcodone/Acet 5/325 mg TABLET PO PRN ×2 (07:23→11:32)
[2019-10-23 07:26] VITALS: BP 128/95
[2019-10-23] MEDS: Budesonide/Formoterol 160/4.5 1 PUFF INH IH SCH (07:36)
[2019-10-23] MEDS: Gabapentin 300 MG CAPSULE PO SCH (08:31)
[2019-10-23] MEDS: Sennosides/Docusate Sodium TABLET PO SCH (08:31)
[2019-10-23] MEDS ORDERED: lisinopriL 10 MG TABLET PO SCH (09:00)
[2019-10-23] MEDS ORDERED: ALPRAZolam 0.5 MG TABLET PO ONE (09:28)
== END 2019-10-23 11:57 | disposition home or self-care (01) | DRG 165 ==
LOC: SAMDAY 06:04 → 2NNU 09:23
PROVIDERS: ADMIT Thoracic Surgery (Cardiothoracic Vascular Surgery); ATTEND Thoracic Surgery (Cardiothoracic Vascular Surgery)